=== PATIENT | male | born 1970 | race Caucasian/White ===

== ENCOUNTER 2018-10-05 07:31 | Emergency (ER) | payer MEDICAID ==
[~2018-10-05] VITALS: Ht 180.3 cm; Wt 88.5 kg
[2018-10-05 07:38] VITALS: BP 135/93
[2018-10-05] MEDS ORDERED: IBUPROFEN 800 MG TAB PO ONE (09:30)
== END 2018-10-05 09:51 | disposition home or self-care (01) ==
LOC: ER 07:39
DX: S20.212A Contusion of left front wall of thorax, initial encounter (principal); W22.8XXA Striking against or struck by other objects, initial encounter; Y93.I9 Activity, other involving external motion; Y92.89 Other specified places as the place of occurrence of the external cause; Y99.8 Other external cause status
CPT/HCPCS: 71101; 71120